=== PATIENT | female | born 1930 | race Caucasian/White ===

== ENCOUNTER 2017-01-17 18:59 | Inpatient (IN) ==
[2017-01-17] MEDS ORDERED: CARDIZEM ONE (19:24)
[2017-01-17] MEDS ORDERED: NS 1,000 ML ONE (19:24)
[2017-01-17] MEDS ORDERED: CARDIZEM 100 MG/NS 100 MG/100 ML IVPB ONE (19:24)
[2017-01-17] MEDS: CARDIZEM 100 MG/NS 100 MG/100 ML IVPB IV SCH ×4 (19:45→23:26)
[2017-01-17] MEDS: NS 1,000 ML IV SCH (19:45)
[2017-01-17] MEDS ORDERED: CARDIZEM IV ONE (19:57)
[2017-01-17 20:12] LABS: BASO% 0.2 % (0.0-0.8); EOS# 0.04 X1000 (0.0-0.7); EOS% 0.3 % (0.0-10.0); HEMATOCRIT 41.5 % (37.0-47.0); HEMOGLOBIN 13.6 g/dL (12.0-16.0); IMM GRAN# 0.06 X1000 (0.0-0.04); IMM GRAN% 0.5 % (0.0-0.5); LYMPH# 1.61 X1000 (1.2-3.4); LYMPH% 13.3 % (20.5-51.1); MANUAL DIFF NEEDED? NO; MCH 31.4 PG (27-31); MCHC 32.8 g/dL (33-37); MCV 95.8 FL (81-99); MONO# 0.93 X1000 (0.11-0.59); MONO% 7.7 % (1.7-9.3); MPV 12.2 FL (7.4-10.4); PLT 186 X1000 (130-400); RBC 4.33 XMIL (4.2-5.4)
[2017-01-17 20:26] LABS: ALBUMIN 3.5 g/dL (3.5-5.0); CALCIUM 8.6 mg/dL (8.8-10.2); TOTAL BILIRUBIN 0.82 mg/dL (0.20-1.00); TOTAL PROTEIN 6.9 g/dL (6.3-8.3)
[2017-01-17 20:53] LABS: URINE CULTURE NEEDED? NO; URINE MICRO REVIEW NEEDED? NO; URINE SOURCE CLEAN CATCH
[2017-01-17 20:56] LABS: BILIRUBIN URINE NEGATIVE (NEGATIVE); BLOOD URINE TRACE (NEGATIVE); COLOR YELLOW; GLUCOSE URINE NEGATIVE (NEGATIVE); LEUKOCYTES URINE NEGATIVE (NEGATIVE); NITRITE URINE NEGATIVE (NEGATIVE); PROTEIN URINE 50 mg/dL (NEGATIVE); SP GRAVITY URINE 1.012; TURBIDITY URINE HAZY (CLEAR); UROBILINOGEN URINE NORMAL (NORMAL)
[2017-01-17 20:57] LABS: UR EPITHELIAL CELLS <10 /HPF (<10); URINE BACTERIA NEGATIVE /HPF; URINE RBC <10 /HPF (<10); URINE WBC <10 /HPF (<10)
[2017-01-18] MEDS: CARDIZEM 100 MG/NS 100 MG/100 ML IVPB IV SCH ×3 (01:30→07:24)
[2017-01-18] MEDS ORDERED: NORCO-5 PO ONE (02:07)
[2017-01-18] MEDS ORDERED: TYLENOL PO PRN (03:49)
[2017-01-18] MEDS ORDERED: ZOFRAN IV PRN (03:49)
[2017-01-18] MEDS: NS 1,000 ML IV SCH ×2 (05:11→14:53)
[2017-01-18] MEDS: HEPARIN SUBQ SCH ×2 (08:37→20:13)
[2017-01-18] MEDS: NAMENDA PO SCH ×2 (08:37→20:13)
[2017-01-18] MEDS ORDERED: PLAVIX PO SCH (09:00)
[2017-01-18 09:01] LABS: MANUAL DIFF NEEDED? NO
[2017-01-18 09:03] LABS: BASO% 0.1 % (0.0-0.8); EOS# 0.02 X1000 (0.0-0.7); EOS% 0.2 % (0.0-10.0); HEMATOCRIT 41.9 % (37.0-47.0); HEMOGLOBIN 13.6 g/dL (12.0-16.0); IMM GRAN# 0.02 X1000 (0.0-0.04); IMM GRAN% 0.2 % (0.0-0.5); LYMPH% 15.1 % (20.5-51.1); MCH 31.3 PG (27-31); MCHC 32.5 g/dL (33-37); MCV 96.5 FL (81-99); MONO# 0.71 X1000 (0.11-0.59); MONO% 7.1 % (1.7-9.3); MPV 11.9 FL (7.4-10.4); NEUT% 77.3 % (42.2-75.2); PLT 164 X1000 (130-400); RBC 4.34 XMIL (4.2-5.4)
[2017-01-18 09:18] LABS: CALCIUM 7.9 mg/dL (8.8-10.2); POTASSIUM 4.5 mmol/L (3.5-5.1)
[2017-01-18] MEDS: LOPRESSOR PO SCH ×2 (13:59→20:13)
[2017-01-18] MEDS ORDERED: NS 1,000 ML IV SCH ×2 (15:07→22:15)
[2017-01-18] MEDS ORDERED: LASIX IV ONE (18:55)
[2017-01-18] MEDS ORDERED: ARICEPT PO SCH (21:00)
[2017-01-18 21:03] LABS: URINE SOURCE CATH
[2017-01-18 21:10] LABS: BILIRUBIN URINE NEGATIVE (NEGATIVE); BLOOD URINE SMALL (NEGATIVE); COLOR YELLOW; GLUCOSE URINE NEGATIVE (NEGATIVE); LEUKOCYTES URINE SMALL (NEGATIVE); NITRITE URINE NEGATIVE (NEGATIVE); PROTEIN URINE 70 mg/dL (NEGATIVE); SP GRAVITY URINE 1.019; TURBIDITY URINE HAZY (CLEAR); UROBILINOGEN URINE NORMAL (NORMAL)
[2017-01-18 21:13] LABS: UR EPITHELIAL CELLS <10 /HPF (<10); URINE BACTERIA NEGATIVE /HPF; URINE MICRO REVIEW NEEDED? YES; URINE RBC <10 /HPF (<10)
[2017-01-18 21:18] LABS: URINE CASTS NONE SEEN; URINE CRYSTALS NONE SEEN; URINE SMALL ROUND CELLS NONE SEEN
[2017-01-18 21:21] LABS: UR CREAT RANDOM 134.8 mg/dL (11-20); UR PROT RANDOM 81.2 mg/dL
[2017-01-19 01:19] VITALS: BP 90/45
[2017-01-19] MEDS: LOPRESSOR PO SCH (02:43)
[2017-01-19] MEDS ORDERED: ATROPINE SYRINGE ONE ×2 (03:21→06:00)
[2017-01-19] MEDS ORDERED: SODIUM BICARBONATE 8.4% ONE (03:36)
[2017-01-19] MEDS ORDERED: EPINEPHRINE SYRINGE ONE (06:00)
== END 2017-01-19 03:59 | disposition expired ==
LOC: ED 18:59 → SUATTDRO 01-18 03:15 → ICU 01-18 03:15
PROVIDERS: ATTEND Internal Medicine